=== PATIENT | male | born 1945 | race Caucasian/White ===

== ENCOUNTER 2016-11-08 14:59 | Inpatient (IN) | payer MEDICARE, BC ==
[~2016-11-08] VITALS: Ht 172.7 cm; Wt 86.3 kg
--- NOTE | ~2016-11-08 | CO ---
ADMIT: 11/08/2016 RM/LOC: 413 [facility] MR#: [id number] [id number] [place], [place] [address] VICKY MENESES [address] [place] [address] Consultation SEX: M AGE: 71 : 1945 DATE OF CONSULTATION: 11/11/2016 ATTENDING PHYSICIAN: Scottie Bergman MD CONSULTING PHYSICIAN: Terrence Mcginnis MD ADDENDUM: This is an addendum to dictation of ARMANDO Rosario CHIEF COMPLAINT: Epigastric pain as well as diffuse abdominal pain. HISTORY OF PRESENT ILLNESS: This is a pleasant 71-year-old male patient, who has multiple medical problems are all well outlined on the chart. He has had chronic abdominal pain. He has had scopes done by Dr. Anders in the past. Otherwise, no other abdominal surgeries he states. The pain is worse in the epigastric region, but is diffuse otherwise. It kind of radiates into his back at times. He has actually been feeling better since he has been here. He does have concern for compression fractures and actually had an MRI of his back done just today. He had a CT scan as well as an ultrasound which looked normal. PHYSICAL EXAMINATION: ABDOMEN: It is little distended. It is soft. Minimal discomfort in the epigastric region. No masses are appreciated. ASSESSMENT: Chronic abdominal pain with multiple other medical problems. No obvious surgical causes at this time. PLAN: We will follow along while he is here in the hospital, but I do not think I have anything offer from a surgical standpoint. He and his are understandably frustrated with what has been going on for him, but I told them I do not have anything to offer him from a surgical standpoint, and he has pretty complex other medical issues that are currently being worked up too, and so we will follow along while he is here and intervene if something changes. Terrence Mcginnis MD/ aimee JOB #: [id number] CC: Scottie Bergman MD, Attending Physician Scottie Bergman MD, Family Physician
[~2016-11-08 14:59] MED LIST: AMBIEN DPS10 MG PO; ASPIR 8181 MG PO; CALTRATE 600 +1 EAC1 PO; COLACE-DPS100 MG PO; DURAGESIC DPS25 MCG TP; ELIQUIS5 MG PO; FLOMAX DPS0.4 MG PO; IBUPROFEN400 MG PO; LIORESAL DPS20 MG PO; MAALOX DPS30 ML PO; MYCAMINE100 MG IV; NEURONTIN DPS100 MG PO; NILSTAT SUSP DPS5 ML PO; OXY-CONTIN10 MG PO; PEPCID DPS20 MG PO; PERCOCET 7.5 DP1 TAB PO; SURFAK DPS240 MG PO; SYNTHROID DP0.137 MG PO; SYNTHROID DPS0.15 MG PO; TYLENOL DPS325 MG PO; ZANTAC DPS150 MG PO
--- NOTE | 2016-11-11 12:44 | ER ---
ADMIT: 11/08/2016 RM/LOC: 429 [facility] MR#: [id number] [address] [facility] [address] [place], [place] [address] VICKY MENESES [address] [place] [address] Emergency Room Report SEX: M AGE: 71 : 1945 DATE: 11/08/2016 SUBJECTIVE: The patient is a 71-year-old male, who came to the ER with a chief complaint of not feeling well, fever, and abdominal pain. The patient has a history of DVT and is on Eliquis, history of iliac aneurysm status post stent, and history of gallstones and also the patient has a history of multiple compression fracture of the spine. The patient states he did not feel well, and he had a fever to 101, and last bowel movement was today this morning, it was normal. The patient also denies any coughing, any yellow or colorful sputum. The patient also denies any shortness of breath, headaches, neck pain, or neck stiffness. The patient states that the abdominal pain is periumbilical and sometimes right upper quadrant, but at the moment, it is left lower quadrant and is crampy and it comes and goes and intermittent and is moderate in severity. The patient also complains of chronic back pain which has not changed recently and denies any weakness or numbness. On physical examination, the patient had a temperature of 101 and received Tylenol in the ER. The patient was mildly tachycardic at 108 with respiratory rate of 17 and blood pressure of 121/61. Sepsis workup was started. Urine was positive for 8 white blood cells. Chest x-ray was questionable for bilateral opacities which he had some trace opacities in the last few x-rays, but it looks like on the right side, the opacities increased. CT of the abdomen did not show any acute changes, but was questionable for some small free fluid in the pelvis and questionable pericholecystic fluid which was followed up with right upper quadrant ultrasound which was negative for cholecystitis. The patient had white blood cells of 3.9 with hemoglobin of 8.6 and platelets of 121,000,. Lactic acid was 2.1 and BUN was 27 with a creatinine of 0.8, and glucose of 83. Lipase was 49 with AST and ALT of 14 and 13 respectively. The initial diagnosis of questionable pneumonia/sepsis. The patient was started on vancomycin and Zosyn. Family Medicine was consulted. The patient was admitted for further followups and treatments of sepsis, hyperpyrexia, and questionable pneumonia. Oswaldo Luu MD/ aimee JOB #: [id number] CC: Scottie Bergman MD, Attending Physician Scottie Bergman MD, Family Physician
--- NOTE | 2016-11-14 14:54 | HP ---
ADMIT: 11/08/2016 RM/LOC: 429 [facility] MR#: [id number] 2620 [facility] [address] [place], [place] [address] VICKY MENESES [address] [place] [address] History and Physical SEX: M AGE: 71 : 1945 DATE OF SERVICE: CHIEF COMPLAINT: Abdominal pain and fever. HISTORY OF PRESENT ILLNESS: This is a 71-year-old gentleman with very complicated recent history of fever of unsure origin and myelodysplastic disorder. He presented to our emergency room today complaining that he just did not feel good and had some lower belly pain that was cramping and coming and going. His thought he had had a fever, but was not sure and had not checked it at home. He also has chronic neck and back pain. In the emergency room, he had a workup including CT of the abdomen and pelvis. This showed minimal pericholecystic fluid as well as lots of stool. He has previous aortic stent graft and the graft was intact with no sign of leaking. He also had an ultrasound of the abdomen tonight that showed gallstones, which were already noted on PET scan, and it also showed no pericholecystic fluid on the ultrasound and no gallbladder wall thickening. Common bile duct was 6 to 7 mm. Lab work included a white count of 3.9 and lactic acid 2.1. He had a fever of 101.1. He felt miserable and was given some Tylenol. Throughout the emergency room stay, he did not have any medicine for pain. He complains of pain now. He was started on Zosyn and vancomycin in the ER, and I am continuing those. Past medical history is significant for a hospital stay in June of 2016 for fever and lower back pain. He had pain in his hip, has multiple compression fractures from osteoporosis. In any case, he had also been hospitalized previously for difficulty from his back pain and question for occult fracture. During all of those recent hospital stays, he had workup including bone marrow biopsy and markers for leukemia and multiple myeloma as well as a bone biopsy of his spine. There have been no definitive answers for cause of his fevers and weakness. He also went to [facility] in early July of 2016 because of persistent fevers. His said he had further studies there, and she thinks to get that included another bone marrow biopsy with further testing. She said that there still was no definitive answer. He is followed with Dr. Sheridan here in [place], and Dr. Sheridan told the patient that his white count and rest of cell counts had stabilized and that he would follow up with him in 6 months. The patient has been doing relatively well for the last month. He is going to physical therapy trying to get stronger, but in general has not very motivated and blames his back pain. His notes that he is getting more and more bruises on his arms and also more dark spots on his legs that are new. She helps him with all of his cares at home. PAST MEDICAL HISTORY: Significant including abdominal aortic aneurysm, history of Earl esophagus, hypothyroidism, cervical spondylosis with prior cervical fusion in C5-C6. He also has chronic constipation, chronic back pain, and bladder outlet obstruction from enlarged prostate. He is on Eliquis for DVT history. He has had iliac artery stents. Myelodysplastic disorder documented by bone marrow biopsy in June of 2016. PAST SURGICAL HISTORY: Aortic stent as well as multiple EGD, colonoscopy, and ADMIT: 11/08/2016 RM/LOC: 429 [facility] MR#: [id number] [address] [place] [address] [place] [id number] VICKY MENESES [address] [place] [id number] History and Physical SEX: M AGE: 71 : 1945 he has also had cataract surgery and the C5-C6 spine fusion. He had a kyphoplasty in the fall of 2015. He also had another kyphoplasty in June of 2016. The patient has also had bone marrow biopsy at least twice and vertically vertebral body biopsy within the last 4 months. MEDICATIONS: His current medicine list is: 1. Synthroid 0.15 mg daily. 2. Tamsulosin 0.4 mg, he takes 1 at breakfast and 1 at noon. 3. Fentanyl patch 100 mcg changed every 72 hours with his latest patch placed today. 4. Oxycodone 10/325, two tabs about every 8 to 12 hours as needed for pain. 5. Calcium citrate with vitamin D3 two at breakfast and 2 at noon, and he has an additional D3 supplement 1000 units at noon. 6. Prednisone 20 mg for "bone marrow inflammation," which has been daily for at least 2 months. 7. Stool softener docusate 100 mg at breakfast and supper. 8. Ambien 5 mg at bedtime. 9. Pepcid 20 mg b.i.d. 10.Gabapentin 100 mg at bedtime. 11.MiraLAX 17 g mixed in juice once daily. 12.Eliquis 5 mg in the morning and 5 mg in the evening. SOCIAL HISTORY: He is . His accompanies him here today. He used to smoke and quit 25 years ago. He drinks alcohol occasionally. FAMILY HISTORY: According to old records, is positive for dementia and heart disease. REVIEW OF SYSTEMS: GENERAL: His said she did not check a temperature at home, and he did complain of chills until he got to the ER. However, he has been feeling very run down and sick. This all started today. Yesterday, he traveled to [place] for a granddaughter's birthday democrat and said he did okay. Overall though, he has been weak and debilitated. He spent some time in a retirement in the last few months and has been going to physical therapy 3 days a week now. ENT: He says his mouth feels dry. Denies headache. CARDIOPULMONARY: Denies chest pain. Denies shortness of breath. GASTROINTESTINAL: He said he does not have an appetite today, but he just feels thirsty. Denies nausea. No black stools. He has chronic constipation. GENITOURINARY: He has some bladder outlet troubles, and he is on medication for that, and his said things have been stable. No bloody urine. MUSCULOSKELETAL: Positive for multiple sites of pain including really his back but also hips, knees, and shoulders. SKIN AND INTEGUMENT: Positive for worsening bruisability. His notes that he will "barely bump a doorway and get a big bruise." He also said his elbow hurt after resting it on arm rest yesterday. His noted more blotchy purplish lesions on his lower legs as well and that has been over the last 2 weeks according to her. ADMIT: 11/08/2016 RM/LOC: 429 [facility] MR#: [id number] [address] [address] VICKY MENESES [address] [place] [address] History and Physical SEX: M AGE: 71 : 1945 PHYSICAL EXAMINATION: GENERAL: He is dozing and he will answer a couple of questions and mainly looks at his to answer the questions. VITAL SIGNS: Oxygen is at 99% on 2 L. I am turning that down. Blood pressures are 110s/60s. Heart rate about 90 regular. GENERAL: This is a pale looking gentleman, who is dozing off and on. He answers questions at times. His eyelids are a little bit puffy. No scleral icterus. No jaundice. There are no obvious petechiae on the face. NECK: Supple. No significant adenopathy is palpable. HEART: Regular. LUNGS: Just a few rhonchi in the bases bilaterally. I hear no wheezing. He is not labored. SKIN: He has marked ecchymoses all over the hands, arms with small and large bruises throughout. He has similar ecchymosis on his legs and mottling changes on the lower legs. He has 1+ edema in the pretibial areas and around his feet bilaterally. LABORATORY AND X-RAY DATA: Electrolytes are normal, but creatinine is 1.8, and it appears that his baseline is typically around 1.1. It was 1.4 in September of last check. Albumin is 3.1. Liver enzymes are normal. Lipase is actually a little bit low at 49. Corrected calcium is 8.1. Troponin 0.017. His INR is 1.26, which is similar to a reading back in April of 2016. White count is 3.9, hemoglobin 8.6, which is compared to 9.8 in August and 11.0 in September, platelets are 121, and on old notes as recent as September platelet count was 232 and they have all been above 150 over the last several months. IMAGING DATA: As noted in the HPI. ASSESSMENT: 1. Lower abdominal pain and cramping of unsure cause, but the patient has chronic constipation. 2. Fever of unsure origin. 3. Myelodysplastic syndrome. 4. Osteoporosis. 5. Chronic back pain. 6. Chronic steroid use. 7. Gastroesophageal reflux. 8. History of Earl esophagitis. 9. Hypothyroidism, stable. 10.Chronic bladder outlet obstruction. PLAN: The patient has had workup in the emergency room and also over the last few months had extensive workup for his abnormal cell counts including bone ADMIT: 11/08/2016 RM/LOC: 429 [facility] MR#: [id number] [address] [address] VICKY MENESES [address] [place] [address] [place] [address] History and Physical SEX: M AGE: 71 : 1945 marrow biopsies. I will admit him and start him on the vancomycin and Zosyn, which was started in the ER. We will give stress dose of steroid. I am going to ask Dr. Sheridan to see him in the morning and see if the patient needs re- evaluation in light of his lower cell counts and recurrent fever. He also has mottling and increasing bruising on the skin. They wonder about platelet function. Again, I will defer to Hematology/Oncology for that. We will continue pain medication including his fentanyl patch for his chronic back pain. Continue other medications for the bladder outlet and esophagitis. It is indicated. Also, he will be on Eliquis as his anticoagulation and so no other blood thinners necessary. He wears compression stockings as well. Lupe Sainz MD/ celial JOB #: [id number] CC: Scottie Bergman MD, Attending Physician Scottie Bergman MD, Family Physician
--- NOTE | 2016-11-22 08:57 | OR ---
ADMIT: 11/08/2016 RM/LOC: 413 [facility] MR#: [id number] 26[address] [facility] [address] [place], [place] [address] VICKY MENESES [address] [place] [address] Operative/Delivery Room Report SEX: M AGE: 71 : 1945 SURGERY DATE: 11/19/2016 SURGEON: Saeed Valenzuela MD PRE-PROCEDURE DIAGNOSES: 1. Anemia. 2. Questionable melena. POSTPROCEDURE DIAGNOSES: 1. Small type 1 sliding hiatal hernia. 2. Gastroparesis. 3. No obvious upper intestinal bleeding source. PROCEDURE: EGD. INDICATIONS: The patient is 71-year-old, with myelodysplastic syndrome on chronic Eliquis who had a questionable melenic stools, been anemic who had reportedly a normal colonoscopy within the last year by Dr. Anders, who presents for upper endoscopy evaluation. FINDINGS: The patient was taken to the endoscopy suite. IV sedation was given. He was placed in left lateral decubitus position. A bite block was placed into the patient's mouth. The gastroscope was introduced down the oropharynx, down the esophagus, into the stomach, where there was a large amount of non-digested food. We were able to pass through the nonobstructive pylorus into the duodenum. The duodenal bulb, second, and third portion of the duodenum appeared normal with no pathology. There was no old or new blood. There was no inflammation. There were no ulcers, no masses. On examining the stomach, there did not appear to be any evidence of gastritis. There was no inflammation, no ulcers, no old or new blood. There was a fair amount of non-digested food within the stomach. On retroflexion view, there was about 2-3 cm, type 1 sliding hiatal hernia. On exam of the GE junction, there was a nonobstructive distal esophageal ring with no varices, no Earl's, no ulcers, no bleeding source. Remainder of the mid and upper esophagus normal. The gastroscope was removed. The patient tolerated the procedure without difficulty, transferred to recovery room in good condition. Saeed Valenzuela MD/ aimee JOB #: [id number] CC: Scottie Bergman MD, Attending Physician Scottie Bergman MD, Family Physician
--- NOTE | 2016-11-23 11:04 | CO ---
ADMIT: 11/08/2016 RM/LOC: 413 [facility] MR#: [id number] [address] [facility] [address] [place], [place] [address] VICKY MENESES [address] [place] [address] Consultation SEX: M AGE: 71 : 1945 DATE OF CONSULTATION: 11/19/2016 ATTENDING PHYSICIAN: Socttie Bergman MD CONSULTING PHYSICIAN: Enrique Posey MD REASON FOR CONSULTATION: Acute kidney injury. HISTORY OF PRESENT ILLNESS: The patient is a 71-year-old gentleman, who has had acute kidney injury previously. He has had a hospitalization earlier in the June. As an outpatient, he has been following up with Oncology for what seems like anemia of chronic kidney disease. He has had a bone marrow biopsy previously that has been negative. He presented to the hospital this time about a couple of weeks ago with a chief complaint of abdominal pain and fever. He has been evaluated by multiple consultants including Infectious Disease, and is being treated for a candidal urinary tract infection with fluconazole. He also had tachycardia for which he was being seen by Cardiology. He has been on anticoagulation with Eliquis for a deep venous thromboembolism. During this hospitalization, he was admitted with a creatinine that was close to his previous baseline of around 1.3. His creatinine was 1.3 about 48 hours ago, it was 1.6 yesterday, and 2.5 this morning. This is in conjunction with his hemoglobin being 7.2 yesterday and dropping to 5.8 today. He has already received about 3 units of blood and his hemoglobin continues to be low. He was hypotensive with his blood pressure in the 90s overnight. He had made good amount of urine in the preceding 24 hours, but notes that his urine output has been dropping off. He has a history of chronic bladder outlet obstruction, although he denies any symptoms of that at this time. His breathing is fair. His main concern is that he hurts all over his body. His pain is most pronounced in his legs. He has also been having some jerks in his arms and legs. Appetite is extremely poor. He has no energy at all. He feels poorly. REVIEW OF SYSTEMS: A complete review of systems is negative in detail except as mentioned in history of present illness above. PAST MEDICAL HISTORY: 1. Earl's esophagus. 2. Abdominal aortic aneurysm. 3. DVT on anticoagulation. 4. Cervical spondylosis with previous cervical fusion. 5. Bladder outlet obstruction. Iliac artery stents/peripheral vascular disease. 6. Myelodysplastic disorder. 7. Kyphoplasty. 8. Cataract surgery. MEDICATIONS: Reviewed in the chart. SOCIAL HISTORY: He is . His is accompanying him in his room. He ADMIT: 11/08/2016 RM/LOC: 413 [facility] MR#: [id number] [address] [address] VICKY MENESES [address] [place] [address] Consultation SEX: M AGE: 71 : 1945 quit smoking about 25 years ago. Drinks alcohol occasionally. FAMILY HISTORY: Father had heart disease. No family history of chronic kidney disease or renal replacement therapy. ALLERGIES: PSEUDOEPHEDRINE THAT CAUSES HIM SWELLING. PHYSICAL EXAMINATION: VITAL SIGNS: Temperature 98.7 Fahrenheit, pulse 84, blood pressure 91/42. GENERAL: He appears pale. HEENT: Head is nontraumatic and normocephalic. Pale conjunctivae. Dry mucosa. CHEST: Clear to auscultation. CVS: Regular rhythm. S1 and S2. No rubs, murmurs, or gallops. ABDOMEN: Soft. EXTREMITIES: 1+ bilateral lower extremity edema. SKIN: He has multiple bruises over his arms. NEUROLOGIC: Alert, awake, and oriented x3. He has myoclonic jerks in his upper extremities. MUSCULOSKELETAL: Major joints within normal limits. PSYCHIATRIC: He is anxious. LABORATORY DATA: Reviewed. BMP with sodium 135, potassium 5.2, creatinine 2.5, BUN 62, hemoglobin 5.8, calcium 8.7. ASSESSMENT AND PLAN: 1. Acute kidney injury-likely ischemic acute tubular necrosis. 2. Azotemia-in the setting of acute kidney injury and gastrointestinal bleed. 3. Hyperkalemia. 4. Acute blood loss anemia. His acute kidney injury is likely secondary to ischemic acute tubular necrosis. I will check urine studies to evaluate further. I will also obtain ADMIT: 11/08/2016 RM/LOC: 413 [facility] MR#: [id number] [address] [address] VICKY MENESES [address] [place] [address] Consultation SEX: M AGE: 71 : 1945 a renal ultrasound with his history of bladder outlet obstruction. I agree with blood transfusions for the time being. I will give him Lasix 40 mg IV in between his packed red blood cell units. As far his acute kidney injury is concerned, I recommend supportive Renal care at this time and maintaining hemodynamics. Avoid nephrotoxins such as NSAIDs, IV contrast, or Fleets enemas. I will also monitor his azotemia and his potassium levels for the time being. There is no indication for renal replacement therapy at this time. His myoclonic jerks may be secondary to his medication gabapentin. I will decrease his dose to 300 mg a day. Thank you for this consultation. Please do not hesitate to contact me with any questions. Enriqeu Posey MD/ aimee JOB #: [id number] CC: Scottie Bergman MD, Attending Physician Scottie Bergman MD, Family Physician
[2016-11-25] MEDS ORDERED: SENOKOT S1 TAB PO (19:34)
[2016-11-25] MEDS ORDERED: NIFEREX-150 FOR1 CAP PO (19:34)
[2016-11-25] MEDS ORDERED: D5W100 ML IV (19:36)
[2016-11-25] MEDS ORDERED: AMBISOME50 MG/20 M IV (19:36)
[2016-11-25] MEDS ORDERED: [UNRECOGNIZED DRUG - OTHER] IV ×2 (19:37)
[2016-11-25] MEDS ORDERED: PROTONIX IV40 MG IV (19:37)
[2016-11-25] MEDS ORDERED: NORMAL SALINE1000 ML IV (19:37)
[2016-11-25] MEDS ORDERED: SOLU-CORTEF100 M1 IV (19:38)
[2016-11-25] MEDS ORDERED: VANCO-0.9%1.25 GM/25 IV (19:39)
[2016-11-25] MEDS ORDERED: ZOSYN 3.373.375 GM/5 IV (19:39)
[2016-11-25] MEDS ORDERED: COLACE-DPS100 MG PO (19:40)
[2016-11-25] MEDS ORDERED: TYLENOL-DPS650 MG PR (19:41)
[2016-11-25] MEDS ORDERED: DULCOLAX-DPS10 MG PR (19:41)
[2016-11-25] MEDS ORDERED: TYLENOL DP650 MG/20. PO (19:41)
[2016-11-25] MEDS ORDERED: NS IV (19:42)
--- NOTE | 2016-12-06 08:35 | CO ---
ADMIT: 11/08/2016 RM/LOC: 413 [facility] MR#: [id number] [id number] [place], [place] [address] VICKY MENESES [address] [place] [address] Consultation SEX: M AGE: 71 : 1945 DATE OF CONSULTATION: 11/11/2016 ATTENDING PHYSICIAN: Scottie Bergman MD CONSULTING PHYSICIAN: Gustavo Sneed DO REASON FOR CONSULTATION: Fever. HISTORY: I was asked to see this patient in the absence of Dr. Gutierrez for Infectious Disease review. He had presented on the with fever and underwent sepsis evaluation and appropriate infectious evaluation and antibiotic coverage. He has not had any further fever since the . He, however, has according to his , had recurrent episodes of fever and source has been difficult to define. In July, he was in the hospital and Dr. Gutierrez saw the patient for what appeared to be an episode of sepsis and at that time, she assisted with his evaluation and management. He has a history of abdominal aortic aneurysm, Earl's esophagus, hypothyroidism, cervical spondylosis, chronic pain, history of compression fractures, osteoporosis, multiple kyphoplasties, and history of leukocytosis. He also reports that he recently received Urology outpatient evaluation with a PSA but cannot recall when the last time he had a prostate examination performed. He has according to the patient intermittent episodes of excruciating dysuria and his reports that he has been complaining of this dysuria with burning at the tip of his penis over the course of this hospitalization and at presentation. He has undergone a prior echocardiogram, which does not suggest any valvular concerns. During this hospitalization, he has had appropriate lab studies for chemistries and on CBC, he has been noted to have a white count of 3.7. Remainder of his review of systems and recent lab studies are negative except that he did have some white blood cells, and trace leukocytes on his presenting urinalysis. His blood cultures have been negative to date and he did have sparse multiple organisms noted on urinalysis. FAMILY HISTORY: Noncontributory. SOCIAL HISTORY: He lives independently with his . CURRENT MEDICATIONS: 1. Ambien. 2. Caltrate. 3. Colace. 4. Flomax. 5. MiraLAX. 6. Neurontin. 7. Pepcid. 8. Synthroid. 9. Vitamin D. 10.Duragesic. For specifics of dosing, please refer to his MAR. ADMIT: 11/08/2016 RM/LOC: 413 [facility] MR#: [id number] 2620 [facility] [address] [place] [address] VICKY MENESES [address] [place] [address], [place] [address] Consultation SEX: M AGE: 71 : 1945 PHYSICAL EXAMINATION: GENERAL: He is quite argumentative and is pugnacious to all suggestions and discussion. His does try to intervene, but he tends to be her back verbally. HEART: He does have a regular heart. LUNGS: Clear lungs. ABDOMEN: Soft. Surgical evaluation has been performed and they cannot find surgical issues that would contribute to his current cares. When I examined his prostate, he has fairly intense pain and discomfort with palpation over an enlarged left prostate lobe. I feel no specific nodules. His white count is 3.7, hemoglobin is 9.2, platelet count is 106,000. IMPRESSION: Recurrent fever, which I suspect relates to acute flare superimposed upon chronic underlying prostatitis. He is on broad-spectrum antibiotics and his temperatures have broken. He has this morning undergone MRI of his back and the results are currently pending and not available for review. PLAN: We will perform some further metabolic evaluation and repeat blood cultures if he re-spikes the temperature. We will recheck a urinalysis status post prostate massage. 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 Gustavo Sneed DO/ aimee JOB #: [id number] CC: Scottie Bergman MD, Attending Physician Scottie Bergman MD, Family Physician
--- NOTE | 2016-12-06 15:33 | CO ---
ADMIT: 11/08/2016 RM/LOC: 413 [facility] MR#: [id number] [address] [place], [place] [address] CALLUM MENESES [address] [place] [address] Consultation SEX: M AGE: 71 : 1945 DATE OF CONSULTATION: 11/15/2016 ATTENDING PHYSICIAN: Scottie Bergman MD CONSULTING PHYSICIAN: Ankush Stephens MD REASON FOR CONSULT: Abnormal EKG. HISTORY OF PRESENT ILLNESS: The patient has been in hospital for a week now and is being seen for abdominal pain. During walk in the hallway, clinical research monitor revealed an irregular rhythm. At that time, the patient admits to increased shortness of breath. He denied any other symptoms including lightheadedness, dizziness, presyncope, chest pain, or tingling. The patient denies history of any irregular rhythms in the past. The patient's cardiac history is positive for leg and ankle swelling as well as shortness of breath with activity. He has had an echo done in June 2015, it revealed mild pulmonary hypertension but was otherwise unremarkable. The patient has also had a stress test done in the past about 3 years ago. Callum denies history of heart attack, any procedures, chest pain, tightness or heaviness, orthopnea, palpitations, fainting, dizziness, lightheadedness, pericarditis, rheumatic fever, or heart murmurs. His vascular history is significant for an abdominal aortic aneurysm in which he receives stenting for. He denies history of sores on the legs or feet as well as varicose veins. He also has pertinent history for DVT on the right side in which he is on Eliquis for. This event occurred in June. 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 He quit in 1998. He does not admit to a history of high blood pressure, high cholesterol and he is not a diabetic. PAST MEDICAL HISTORY: Significant illnesses: Low back pain, hypothyroidism, abdominal pain, history DVT. ALLERGIES: SUDAFED. FAMILY HISTORY: Heart disease positive for father. Negative family history for diabetes, cancer, or stroke. SOCIAL HISTORY: The patient does not follow a special diet. He denies use of caffeine, alcohol, or drug use or abuse. Occupation, retired. Marital status, . REVIEW OF SYSTEMS: GENERAL: The patient does report to tiring easily in which just started within the last couple of months. He denies current recent fever, chills, or sweats but does admit to feeling feverish and having chills on 11/08 when he was admitted. The patient also reports history of recent weight gain in which he has gained 20 pounds since September. The patient feels that this is due to fluid accumulation in the legs. EYES: The patient denies history of blurry vision, glaucoma, or loss of vision. He does have a history of cataracts, which were removed. ADMIT: 11/08/2016 RM/LOC: 413 [facility] MR#: [id number] [facility] [address] [address] CALLUM MENESES [address] [place] [address] Consultation SEX: M AGE: 71 : 1945 THROAT, MOUTH, AND EARS: The patient denies history of nose, sinus, throat, hearing, or ear troubles. RESPIRATORY: The patient denies history of asthma, wheezing, emphysema, bronchitis, chronic cough, bloody sputum, snoring, waking up in the middle of the night more than once or being tired first thing in the morning. GASTROINTESTINAL: The patient denies history of heartburn, reflux, difficulty swallowing, hiatal hernia, stomach ulcer, rectal bleeding, or bloody stools, gallbladder problems or liver disease. GENITOURINARY: The patient does report a history of blood in the urine, painful urination that he reports starts as a burning at the beginning of urination and fades to nonpainful as urination continues. The patient does report a history of urinary tract infections, kidney stones. He denies kidney failure. MUSCULOSKELETAL: The patient denies a history of arthritis or gout, muscle or joint pains. ENDOCRINE: The patient does report a history of hypothyroidism. HEMATOLOGY/LYMPHATIC: The patient denies a history of anemia, bleeding problems or cancer. NEUROLOGIC: Denies history of chronic headaches, strokes, seizure disorder, numbness or tingling. PSYCHIATRIC: Denies history of mental illness, depression, or anxiety. PHYSICAL EXAMINATION: GENERAL: Alert and oriented x3. NECK: Absent JVD. HEART: Irregularly irregular rhythm. Rate is in the low 120s and 110s. The patient's heart rate has been in the low 120s. LUNGS: Clear to auscultation. ABDOMEN: Bowel sounds present. EXTREMITIES: 2+ pitting edema of lower extremities. LABORATORY DATA: Sodium 143, potassium 3.2, chloride 108, CO2 of 28, BUN 23, ADMIT: 11/08/2016 RM/LOC: 413 [facility] MR#: [id number] [address] [place] [id number] CALLUM MENESES [address] [place] [address] Consultation SEX: M AGE: 71 : 1945 creatinine 1.3, glucose 103, TSH 15.8. ASSESSMENT: 1. Irregular heart rate-ectopic atrial tachycardia. 2. Edema. 3. Peptic ulcer disease. 4. Abdominal pain. We are concerned for possible atrial fibrillation but it appears to be due to ectopic atrial tachycardia. We will do beta-dionicio for now. He does not want any pills. We will do IV for now. Also, we will start IV Lasix for edema. Question of diastolic heart failure or just volume overload. Continue to monitor. ARMANDO Daigle Student / Ankush Stephens MD / modl JOB #: [id number] CC: Scottie Bergman MD, Attending Physician Scottie Bergman MD, Family Physician
--- NOTE | 2016-12-07 07:06 | CO ---
ADMIT: 11/08/2016 RM/LOC: 413 [facility] MR#: [id number] 26[address] [facility] [address] [facility] [place], [place] [address] CALLUM MENESES [address] [place] [address] Consultation SEX: M AGE: 71 : 1945 DATE OF CONSULTATION: 11/11/2016 ATTENDING PHYSICIAN: Scottie Bergman MD CONSULTING PHYSICIAN: Terrence Mcginnis MD REASON FOR CONSULTATION: Abdominal pain. HISTORY OF PRESENT ILLNESS: Callum is a very pleasant 71-year-old male, who has been admitted to the hospital for just overall not feeling well. Apparently, when he was admitted, he was having some abdominal pain, myalgias, and fever. He does have a history of chronic neck and back pain. Unfortunately, this patient has a very long and complicated history of these similar symptoms. He has had an extensive workup including myelodysplastic disorder with bone marrow biopsies sent to [facility] which all came back negative. It is obvious that the patient and his , who was present during my whole assessment have been frustrated with no concrete resolution to his symptoms. Currently, the patient states that his abdominal pain has been on and off for months. He denies any nausea, vomiting, diarrhea, or constipation. He does have a couple times where he would go 2 days without a bowel movement, but is resolved with MiraLax and prune juice. He denies any bowel problems. PAST MEDICAL HISTORY: Significant for; 1. AAA. 2. Earl's esophagus. 3. Hypothyroidism. 4. Cervical spondylosis with prior cervical fusion. 5. Chronic pain. 6. Bladder outlet obstruction. 7. Previous DVTs. PAST SURGICAL HISTORY: He has had iliac artery stents and bone marrow biopsies. ALLERGIES: SUDAFED. MEDICATIONS: Well documented in chart. FAMILY HISTORY: Noncontributory. SOCIAL HISTORY: Former smoker and drinks alcohol socially. REVIEW OF SYSTEMS: CONSTITUTIONAL: The patient currently denies any fever, chills, or night sweats. The rest of a comprehensive 10-point review of systems was performed and all other systems are negative. PHYSICAL EXAMINATION: GENERAL: The patient is in no acute distress. He is alert and oriented. HEENT: Head is normocephalic and atraumatic. EOMS are intact. Conjunctivae ADMIT: 11/08/2016 RM/LOC: 413 [facility] MR#: [id number] [address] [address] CALLUM MENESES [address] [place] [address] Consultation SEX: M AGE: 71 : 1945 free of icterus, erythema, or pallor. Pinnae, free of deformities. Nose, midline. No tracheal deviation. NECK: Supple. SKIN: Negative for jaundice, clubbing, edema, pallor, or cyanosis. LUNGS: Normal respiratory effort. HEART: Distal pulses intact. Regular rate and rhythm. ABDOMEN: Soft, nondistended. Mild discomfort, but negative for tenderness with light and deep palpation. NEURO: Grossly intact. LABORATORY DATA: LFTs within normal limits. ASSESSMENT: Persistent abdominal pain. PLAN: During my assessment, Dr. Mcginnis entered the room to complete the assessment. Any recommendations will be based off his orders. Unfortunately, it still looks like there is no definitive answer for his abdominal pain but we will follow along and see how he does. Gallbladder looks fine. Thanks for the consultation of this patient. ARMANDO Rosario / Terrence Mcginnis MD / aimee JOB #: [id number] CC: Scottie Bergman MD, Attending Physician Scottie Bergman MD, Family Physician
--- NOTE | 2016-12-23 08:40 | DS ---
ADMIT: 11/08/2016 RM/LOC: 311 [facility] MR#: [id number] [address] [place], [place] [address] VICKY MENESES [address] [place] [address] General Discharge Summary SEX: M AGE: 71 : 1945 ADMISSION DATE: 11/08/2016 DISCHARGE DATE: 11/24/2016 DISCHARGE DIAGNOSES: Include: 1. Fever of unknown origin. 2. Myelodysplastic syndrome. 3. Abdominal pain. 4. Osteoporosis. 5. Back pain. 6. Chronic steroid use. 7. Gastroesophageal reflux disease. 8. History of Earl's. 9. Hypothyroidism. 10.Vee urinary tract infection. 11.Ectopic atrial tachycardia. 12.Acute kidney injury. 13.Gastrointestinal bleed. 14.Hyperkalemia. 15.Anemia. 16.History of deep vein thrombosis. 17.Pancytopenia. 18.Abdominal aortic aneurysm. CONSULTANTS: 1. General Surgery. 2. Infectious Disease. 3. Cardiology. 4. Renal. HISTORY OF PRESENT ILLNESS: Please refer to admission H and P dated 11/08/2016. HOSPITAL COURSE: The patient was admitted, multiple specialists were consulted, was given stress-dose steroids. He was started on vancomycin and Zosyn, transfused secondary to his anemia, transferred to the ICU, given IV fluid resuscitation. He has had severe sepsis and multiple spinal fractures. He was given calcium gluconate as well as albumin. He has had a history of DVT. On 11/10/2016, IR was consulted for biopsy of vertebra. There was concern for possible underlying prostatitis. On 11/11/2016, the patient underwent CT-guided L1 bone biopsy. Concern of possible AFib. On the , Cardiology was consulted. The patient was changed from Zosyn and vancomycin to ceftriaxone. Cardiology felt he had ectopic atrial tachycardia, was put on Lasix, metoprolol. He had yeast on UTI, was started on fluconazole, Rocephin was stopped. The patient underwent bone marrow biopsy on 11/18/2016. On 11/18/2016, the patient had some black stools, Eliquis was hold and he was put on Protonix, set up for an EGD, given IV bolus, re-transfused, Renal was consulted for an acute kidney injury. Red blood cell scan ordered. The patient had EGD on 11/19/2016, which showed hiatal hernia, gastroparesis, no evidence of bleed. He was transferred to the ICU on 11/19/2016, the patient was ADMIT: 11/08/2016 RM/LOC: 311 [facility] MR#: [id number] [facility] [address] [address] VICKY MENESES [address] [place] [address] General Discharge Summary SEX: M AGE: 71 : 1945 intermittently transfused, the patient was transfused platelets as well, as well as vitamin K and FFP. On 11/22/2016, the patient was treated for possible sepsis, Zosyn and vancomycin were restarted. ID was reconsulted and they elected to start AmBisome. Discussed with Dr. Mcginnis, given everything going on and both in agreement, he would benefit from transfer to higher level care for fever of unknown origin, GI bleed as well as multiple medical problems. DISCHARGE MEDICATIONS: Please see discharge MAR. PROCEDURES: EGD in 11/19/2016. Bone marrow biopsies x2. LABORATORY DATA: Labs on 11/24/2016; white count 3.5, hemoglobin 6.6, platelets were 44. On 11/24/2016, INR was 1.32. UA showed 1+ protein, 14 RBCs on 11/19/2016. Occult blood was positive on 11/17 and 11/13. Ferritin 160, haptoglobin 60, free T4 is 2.72, TSH was 15.8 and 11. Legionella was less than . Blood cultures, no growth. Vee on the urine grew 100,000 on 11/15/2016. The patient did have an antibody regarding specialized blood. For additional lab work, please refer to [facility] as he had extensive lab work during the hospitalization. RADIOLOGY: On 11/08/2016, CT of the abdomen and pelvis shows aortic stent graft with known abdominal aneurysm relatively unchanged, no suspicious findings to suspect aortic leak as well as splenomegaly, constipation, possible minimal pericholecystic fluid, small amount of free fluid in the pelvis. CT of the chest was done on 11/19/2016, shows small bibasilar pleural effusions, right basilar atelectatic, minimal bronchial wall thickening, mild superimposed bronchitis not excluded, significant splenomegaly, nonspecific scattered mediastinal lymph nodes. MRI of the lumbar spine shows advanced degenerative changes with multiple compression deformities and augmentation, similar to prior study. Overall, no findings to suggest new compression deformities, no abnormal signal within the spinal cord, abnormal bone marrow signal suggesting marrow replacing process demonstrated previously, no interval change. MRI of the thoracic spine, known old compression deformities at T11-T12, no findings suggest acute compression deformity, no findings suggest of abscess, no marrow replacement process, no abnormal signal within the spinal cord, no suspicious enhancement following contrast administration. Nuclear med scan, tagged red cell scan shows positive for bleeding activity in the mid-left abdomen on 11/19/2018. Chest x-ray on 11/08/2016, shows mild peribronchial cuffing centrally with scattered fibrotic change and removal of the left central line, no acute findings. 11/09/2016, shows cardiomegaly without decompensation. 11/19/2016, shows interstitial markings throughout the lungs, slightly more prominent than previously, may be due to inflammatory change, possible mild interstitial edema. 11/23/2016, chest x-ray; interval PICC placement, increased interstitial markings, atelectasis similar to prior study. Ultrasound of the abdomen shows cholelithiasis as demonstrated previously with no definite ductal dilation, no gallbladder wall thickening. ADMIT: 11/08/2016 RM/LOC: 311 [facility] MR#: [id number] [address] [facility] [address] [place], [place] [address] VICKY MENESES [address] [place] [address] General Discharge Summary SEX: M AGE: 71 : 1945 The patient was not tender. Thickening of the gallbladder, large stone was 1.5 cm. Ultrasound of the pelvis shows enlarged heterogeneous prostate gland indenting the bladder, bladder volume was estimated to be approximately 55 despite recent voiding, right ureteral jet was not demonstrated. Ultrasound of the kidney shows right kidney smaller than the left, no hydronephrosis on the right or left, large prostate indenting the bladder. EKG shows sinus tach, left axis deviation, aberrantly conducted supraventricular complexes. The patient was transferred to [facility] for higher level of care. Scottie Bergman MD/ aimee JOB #: [id number] CC: Scottie Bergman MD, Attending Physician Scottie Begrman MD, Family Physician MD Enrique Lehman MD
[2016-12-24] MEDS ORDERED: AMBIEN DPS5 MG PO (14:51)
[2016-12-24] MEDS ORDERED: COLACE-DPS100 MG PO (14:52)
[2016-12-24] MEDS ORDERED: CALTRATE-600 W600 MG PO (14:52)
[2016-12-24] MEDS ORDERED: DELTASONE DPS20 MG PO (14:53)
[2016-12-24] MEDS ORDERED: MIRALAX PACKET17 GM PO (14:54)
[2016-12-24] MEDS ORDERED: FLOMAX DPS0.4 MG PO (14:54)
[2016-12-24] MEDS ORDERED: METOPROLOL TART25 MG PO (14:54)
[2016-12-24] MEDS ORDERED: FOLVITE-DPS1 MG PO (14:54)
[2016-12-24] MEDS ORDERED: NEURONTIN DPS300 MG PO (14:55)
[2016-12-24] MEDS ORDERED: SYNTHROID DPS0.15 MG PO (14:56)
[2016-12-24] MEDS ORDERED: VITAMIN D31000 UNIT PO (14:57)
[2016-12-24] MEDS ORDERED: DURAGESIC1 EAC3 TD (14:58)
[2016-12-24] MEDS ORDERED: MAALOX DPS30 ML PO (14:59)
[2016-12-24] MEDS ORDERED: PERCOCET 10 DPS1 TAB PO (14:59)
[2016-12-24] MEDS ORDERED: TYLENOL DPS325 MG PO (15:00)
[2016-12-24] MEDS ORDERED: NITROSTAT0.4 MG SL (15:03)
[2016-12-24] MEDS ORDERED: BUMEX DPS1 MG PO (15:04)
[2016-12-24] MEDS ORDERED: CYMBALTA60 MG PO (15:05)
[2016-12-24] MEDS ORDERED: KLOR-CON M2020 ME1 PO (15:05)
[2016-12-24] MEDS ORDERED: PROTONIX40 MG PO (15:05)
[2016-12-24] MEDS ORDERED: DULERA 200/58.8 GM IH (15:06)
[2016-12-24] MEDS ORDERED: SPORANOX100 MG PO (15:06)
[2016-12-24] MEDS ORDERED: THERAPEUTIC MUL1 TAB PO (15:06)
[2016-12-24] MEDS ORDERED: DUONEB DPS3 ML IH (15:06)
[2016-12-24] MEDS ORDERED: PROVENTIL2.5 MG/3 M IH (15:08)
== END 2016-11-24 16:25 | disposition short-term general hospital (02) | DRG 853 ==
LOC: ER 14:59 → 3ICU 18:40 → 4PCU 18:40 → 3ICU 11-09 10:17 → 4PCU 11-10 12:18 → 3ICU 11-19 18:20
PROVIDERS: ADMIT Family Medicine
PROC: 30233N1 Transfusion of Nonautologous Red Blood Cells into Peripheral Vein, Percutaneous Approach (ICD-10-PCS; 2016-11-09)
PROC: 0QB03ZX Excision of Lumbar Vertebra, Percutaneous Approach, Diagnostic (ICD-10-PCS; principal; 2016-11-11)
PROC: 07DS3ZX Extraction of Vertebral Bone Marrow, Percutaneous Approach, Diagnostic (ICD-10-PCS; 2016-11-18)
PROC: 30233R1 Transfusion of Nonautologous Platelets into Peripheral Vein, Percutaneous Approach (ICD-10-PCS; 2016-11-19)
PROC: 0DJ08ZZ Inspection of Upper Intestinal Tract, Via Natural or Artificial Opening Endoscopic (ICD-10-PCS; 2016-11-19)
PROC: 02HV33Z Insertion of Infusion Device into Superior Vena Cava, Percutaneous Approach (ICD-10-PCS; 2016-11-20)
PROC: 30233K1 Transfusion of Nonautologous Frozen Plasma into Peripheral Vein, Percutaneous Approach (ICD-10-PCS; 2016-11-22)
DX: R50.9 Fever, unspecified (principal); N17.0 Acute kidney failure with tubular necrosis; E46 Unspecified protein-calorie malnutrition; D61.818 Other pancytopenia; I95.9 Hypotension, unspecified; K92.2 Gastrointestinal hemorrhage, unspecified; D62 Acute posthemorrhagic anemia; I47.1 Supraventricular tachycardia; C94.6 Myelodysplastic disease, not elsewhere classified; E87.70 Fluid overload, unspecified; N41.0 Acute prostatitis; B37.49 Other urogenital candidiasis; E87.5 Hyperkalemia; E87.6 Hypokalemia; N18.9 Chronic kidney disease, unspecified; I12.9 Hypertensive chronic kidney disease with stage 1 through stage 4 chronic kidney disease, or unspecified chronic kidney disease; K22.70 Barrett's esophagus without dysplasia; R16.2 Hepatomegaly with splenomegaly, not elsewhere classified; K80.20 Calculus of gallbladder without cholecystitis without obstruction; K21.9 Gastro-esophageal reflux disease without esophagitis; K31.84 Gastroparesis; K44.9 Diaphragmatic hernia without obstruction or gangrene; M81.0 Age-related osteoporosis without current pathological fracture; E03.9 Hypothyroidism, unspecified; K59.09 Other constipation; I73.9 Peripheral vascular disease, unspecified; G89.29 Other chronic pain; R10.9 Unspecified abdominal pain; N40.1 Benign prostatic hyperplasia with lower urinary tract symptoms; N32.0 Bladder-neck obstruction; Z87.891 Personal history of nicotine dependence; Z86.79 Personal history of other diseases of the circulatory system; Z98.1 Arthrodesis status; Z86.718 Personal history of other venous thrombosis and embolism; Z79.01 Long term (current) use of anticoagulants; Z79.52 Long term (current) use of systemic steroids

== ENCOUNTER 2017-02-27 09:05 | Emergency (ER) | payer MEDICARE, BC ==
[~2017-02-27 09:05] MED LIST changes: +AMBIEN DPS5 MG PO; +AMBISOME50 MG/20 M IV; +BUMEX DPS1 MG PO; +CALTRATE-600 W600 MG PO; +CYMBALTA60 MG PO; +D5W100 ML IV; +DELTASONE DPS20 MG PO; +DULCOLAX-DPS10 MG PR; +DULERA 200/58.8 GM IH; +DUONEB DPS3 ML IH; +DURAGESIC1 EAC3 TD; +FOLVITE-DPS1 MG PO; +KLOR-CON M2020 ME1 PO; +METOPROLOL TART25 MG PO; +MIRALAX PACKET17 GM PO; +NEURONTIN DPS300 MG PO; +NIFEREX-150 FOR1 CAP PO; +NITROSTAT0.4 MG SL; +NORMAL SALINE1000 ML IV; +NS IV; +PERCOCET 10 DPS1 TAB PO; +PROTONIX IV40 MG IV; +PROTONIX40 MG PO; +PROVENTIL2.5 MG/3 M IH; +SENOKOT S1 TAB PO; +SOLU-CORTEF100 M1 IV; +SPORANOX100 MG PO; +THERAPEUTIC MUL1 TAB PO; +TYLENOL DP650 MG/20. PO; +TYLENOL-DPS650 MG PR; +VANCO-0.9%1.25 GM/25 IV; +VITAMIN D31000 UNIT PO; +ZOSYN 3.373.375 GM/5 IV; +[UNRECOGNIZED DRUG - OTHER] IV
--- NOTE | 2017-03-02 09:47 | ER ---
ADMIT: 02/27/2017 RM/LOC: ER [facility] MR#: [id number] 26[address] [facility] [address] [place], [place] [address] VICKY MENESES [address] [place] [address] Emergency Room Report SEX: M AGE: 71 : 1945 DATE: 02/27/2017 ADDENDUM: This is a 71-year-old white male coming in after falling. He has old pelvic fracture by CT, but nothing on his left hip. His left shoulder hurts that is more of a strain. We checked his ribs that is more of a strain as well. He also has multiple skin tears that we closed with Dermabond. These are all irregular, essentially flaps of skin. We used Dermabond to close them as well as we could in the most of the areas. He has some old healing ones as well. At this time, discharged back to [facility]. Instructions to follow up with Dr. Sheridan since he has myelodysplastic syndrome, and his hemoglobin is 6.9, so he is just at the borderline for possible transfusion. We are going to defer that to Dr. Sheridan to decide to when and how much he wants him to transfuse since he is just borderline. He was 7.4 the other day. Family is here. We dressed the other wounds, and then spoke with the [facility] about being up with assistance only, and then following up accordingly. CONDITION AT DISCHARGE: Improved. Arnulfo Del Rio MD/ aimee JOB #: [id number] CC: Arnulfo Del Rio MD, Attending Physician
== END 2017-02-27 14:45 | disposition home or self-care (01) ==
LOC: ER 09:05
PROC: 0HQFXZZ Repair Right Hand Skin, External Approach (ICD-10-PCS; principal; 2017-02-27)
PROC: 0HQGXZZ Repair Left Hand Skin, External Approach (ICD-10-PCS; 2017-02-27)
DX: S61.412A Laceration without foreign body of left hand, initial encounter (principal); S61.411A Laceration without foreign body of right hand, initial encounter; S29.011A Strain of muscle and tendon of front wall of thorax, initial encounter; S46.912A Strain of unspecified muscle, fascia and tendon at shoulder and upper arm level, left arm, initial encounter; D64.9 Anemia, unspecified; M25.552 Pain in left hip; Z88.8 Allergy status to other drugs, medicaments and biological substances; Z88.1 Allergy status to other antibiotic agents; Z79.891 Long term (current) use of opiate analgesic; Z87.81 Personal history of (healed) traumatic fracture; W18.30XA Fall on same level, unspecified, initial encounter; Y92.129 Unspecified place in nursing home as the place of occurrence of the external cause